=== PATIENT | female | born 1970 | race Caucasian/White ===

== ENCOUNTER 2020-12-09 12:31 | Emergency (ER) | payer OTHER ==
[2020-12-09] MEDS ORDERED: Sodium Chloride 0.9% 1000 ML 1,000 ML IV STA (12:58)
[2020-12-09] MEDS ORDERED: Zofran 4 MG/2 ML VIAL IV ONE (12:58)
[2020-12-09] MEDS ORDERED: MORPHINE SULFATE 4 MG INJ IV ONE (12:58)
[2020-12-09] MEDS ORDERED: Zofran 4 MG/2 ML VIAL ONE (13:01)
[2020-12-09] MEDS ORDERED: MORPHINE SULFATE 4 MG INJ ONE (13:01)
[2020-12-09] MEDS ORDERED: Sodium Chloride 0.9% 1000 ML 1,000 ML ONE (13:01)
[2020-12-09 13:13] LABS: Absolute Neutrophil Ct (ANC) 9.03 (1.4-6.9); BASOPHIL % 0.3 % (0.0-0.4); Basophil (Absolute #) 0.04 (0-0.4); Eosinophil % 6.6 % (0.00-5.0); Eosinophil (Absolute #) 0.92 (0-0.5); Hematocrit 38.3 % (35-47); Hemoglobin 12.2 gm/dl (12.0-16.0); Lymphocyte (Absolute #) 3.07 (1.0-4.6); Lymphocytes % 22.2 % (24.0-44.0); Mean Cell Volume 95.8 fl (78-100); Mean Corpuscular Hemoglobin 30.5 pg (26-32); Mean Corpuscular Hgb Concent. 31.9 g/dl (32-36); Mean Platelet Volume 9.7 fl (7.5-11.0); Monocyte (Absolute #) 0.79 (0.0-1.3); Monocytes % 5.7 % (0.0-12.0); Neutrophil % 65.2 % (36.0-66.0); Platelet Count 362 K/mm3 (150-450); Red Cell Distribution Width 15.4 % (11.5-14.0); White Blood Count 13.9 K/mm3 (4.0-10.5)
[2020-12-09 13:18] LABS: Appearance CLOUDY (CLEAR); Bacteria FEW /HPF (NEGATIVE); Bilirubin NEGATIVE (NEGATIVE); Blood MODERATE Ery/ul (0-5); Epithelial Cells RARE /HPF (FEW); Glucose NEGATIVE (NEGATIVE); Ketones NEGATIVE (NEGATIVE); Leukocyte Esterase LARGE (NEGATIVE); Mucus MANY /HPF (NEGATIVE); Nitrite POSITIVE (NEGATIVE); Protein,Urine Dip 30 (Negative); Specific Gravity 1.016 (1.005-1.025); Urobilinogen NEGATIVE mg/dL (0-1); WBC >100 /HPF (0-5)
--- NOTE | 2020-12-09 13:18 | ERPHSYRPT ---
- History of Present Illness Time Seen by Provider: 12/09/20 12:55 Historian: patient Exam Limitations: no limitations Patient Subjective Stated Complaint: here for lower abd pressure and frequency and pain with urination . has had UTI and been on 3 rounds of antiboitcs Triage Nursing Assessment: pt alert, walked in, resp easy, skin w/d/p. abd soft Physician History: Patient is a 50-year-old female presents to our ED with complaints of recurrent urinary tract infections and now experiencing urinary frequency and dysuria. Patient states that she has had 3 rounds of antibiotics for a urinary tract infection. She is diabetic. Patient also complains of lower abdominal pressure. She has been experiencing these symptoms intermittently since September 2020. 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 No trauma. No fever. No nausea or vomiting. No diarrhea. No rash. Symptoms are moderate in intensity. No specific worsening improving factors. Patient expresses concern that she may have a kidney stone. Patient voices no other complaints concerns at this time. Timing/Duration: today Activities at Onset: none Abdominal Pain Onset Location: other (Lower abdominal pain spans from left to right lower quadrant.) Pain Radiation: no radiation Severity of Pain-Max: moderate Severity of Pain-Current: mild Modifying Factors: Improves With: nothing Associated Symptoms: No diarrhea, No fever/chills, No nausea, No shortness of breath, No syncope, No vomiting Previous symptoms: same symptoms as today Allergies/Adverse Reactions: ciprofloxacin [From Cipro] Allergy (Severe, Verified 12/09/20 12:49) gets cellulitis Sulfa (Sulfonamide Antibiotics) Allergy (Severe, Verified 12/09/20 12:49) tachycardia Home Medications: Amitriptyline HCl 75 mg PO DAILY 04/26/20 [History] Ergocalciferol (Vitamin D2) [Vitamin D] 50,000 unit PO WEEKLY 04/26/20 [History] Insulin Glargine,Hum.rec.anlog [Basaglar Kwikpen U-100] 60 unit SQ BID 04/26/20 [History] Insulin Lispro [Humalog] 100 unit SQ AC 04/26/20 [History] Metformin HCl [Metformin ER Osmotic] 1,000 mg PO BID 04/26/20 [History] Pramipexole Di-HCl 0.5 mg [Mirapex 0.5 MG Tablet] 0.5 mg PO HS 04/26/20 [History] Atorvastatin Calcium [Lipitor] 10 mg PO DAILY 11/24/20 [History] Ferrous Sulfate, Dried [Iron] 65 mg PO DAILY 11/24/20 [History] Spironolactone 50 mg PO BID 11/24/20 [History] Immunizations Up to Date: Yes Travel Risk - International Travel Have you traveled outside of the country in past 3 weeks: No - Coronavirus Screening Are you exhibiting any of the following symptoms?: No Close contact with a COVID-19 positive Pt in past 14-21 Days: No - Vaccine Status Have you recieved a Covid-19 vaccination: Yes 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 - Vaccination Dates Date of 2cond Vaccination (if applicable): august 2020 - Review of Systems Constitutional: No Symptoms, No Fever, No Chills Eyes: No Symptoms Ears, Nose, & Throat: No Symptoms Respiratory: No Symptoms, No Cough, No Dyspnea Cardiac: No Symptoms, No Chest Pain, No Edema, No Syncope Abdominal/Gastrointestinal: No Symptoms, No Abdominal Pain, No Nausea, No Vomiting, No Diarrhea Genitourinary Symptoms: No Symptoms, No Dysuria Musculoskeletal: No Symptoms, No Back Pain, No Neck Pain Skin: No Symptoms, No Rash Neurological: No Symptoms, No Dizziness, No Focal Weakness, No Sensory Changes Psychological: No Symptoms Endocrine: No Symptoms Hematologic/Lymphatic: No Symptoms Immunological/Allergic: No Symptoms All Other Systems: Reviewed and Negative - Past Medical History Pertinent Past Medical History: Yes Neurological History: Migraines ENT History: No Pertinent History Cardiac History: Hypertension Respiratory History: No Pertinent History Endocrine Medical History: Diabetes Type II Musculoskeletal History: Osteoarthritis GI Medical History: No Pertinent History History: No Pertinent History Psycho-Social History: No Pertinent History Female Reproductive Disorders: No Pertinent History Other Medical History: low IGG2 - Past Surgical History Past Surgical History: Yes Neuro Surgical History: No Pertinent History Cardiac: No Pertinent History Respiratory: No Pertinent History Gastrointestinal: No Pertinent History Genitourinary: No Pertinent History Musculoskeletal: Joint Replacement Female Surgical History: Section, Tubal Ligation Other Surgical History: bilateral hip replacements, back, right foot ganglion cyst - Social History Smoking Status: Never smoker Exposure to second hand smoke: No Drug Use: none Patient Lives Alone: No - Female History Hx Last Menstrual Period: irregular Hx Now: No - Nursing Vital Signs Nursing Vital Signs: Initial Vital Signs Temperature 97.0 F 12/09/20 12:42 Pulse Rate 106 H 12/09/20 12:42 Respiratory Rate 18 12/09/20 12:42 Blood Pressure 175/91 12/09/20 12:42 O2 Sat by Pulse Oximetry 99 12/09/20 12:42 Pain Scale Pain Intensity 3 - Physical Exam General Appearance: no apparent distress, alert, obese Eye Exam: PERRL/EOMI, eyes nml inspection Ears, Nose, Throat Exam: normal ENT inspection, pharynx normal, moist mucous membranes Neck Exam: normal inspection, non-tender, supple, full range of motion Respiratory Exam: normal breath sounds, lungs clear, No respiratory distress Cardiovascular Exam: regular rate/rhythm, normal heart sounds Gastrointestinal/Abdomen Exam: soft, other (Tenderness to palpation across lower abdomen. Overlying soft tissue intact. Large pannus observed.), No tenderness, No mass Back Exam: normal inspection, normal range of motion, No CVA tenderness, No vertebral tenderness Extremity Exam: normal inspection, normal range of motion, pelvis stable Neurologic Exam: alert, oriented x 3, cooperative, sensation nml, No motor deficits Skin Exam: normal color, warm, dry SpO2 Interpretation: normal SpO2: 99 O2 Delivery: Room Air - Course Nursing assessment & vital signs reviewed: Yes Ordered Tests: Active Orders 24 hr Category Date Time Status IV Insertion STAT Care 12/09/20 12:58 Active ABDOMEN AND PELVIS W CONTRAST [CT] Stat Exams 12/09/20 12:58 Completed CBC W DIFF Stat Lab 12/09/20 13:10 Completed CMP Stat Lab 12/09/20 13:10 Completed CULTURE,URINE Stat Lab 12/09/20 12:50 Received LIPASE Stat Lab 12/09/20 13:10 Completed Manual Differential NC Stat Lab 12/09/20 13:10 Completed UA W/RFX UR CULTURE Stat Lab 12/09/20 12:50 Completed Medication Summary Discontinued Medications Generic Name Dose Route Start Last Admin Trade Name Freq PRN Reason Stop Dose Admin Sodium Chloride 1,000 mls @ 999 mls/hr 12/09/20 12:58 12/09/20 14:07 Sodium Chloride 0.9% 1000 Ml IV 12/09/20 13:58 Infused .Q1H1M STA Infusion Sodium Chloride Confirm 12/09/20 13:01 Sodium Chloride 0.9% 1000 Ml Administered 12/09/20 13:02 Dose 1,000 mls @ ud .ROUTE .STK-MED ONE Morphine Sulfate 4 mg 12/09/20 12:58 12/09/20 13:06 Morphine Sulfate 4 Mg Inj IV 12/09/20 12:59 4 mg STAT ONE Administration Morphine Sulfate Confirm 12/09/20 13:01 Morphine Sulfate 4 Mg Inj Administered 12/09/20 13:02 Dose 4 mg .ROUTE .STK-MED ONE Nitrofurantoin Macrocrystals 100 mg 12/09/20 15:02 12/09/20 15:09 Macrobid 100mg Capsule PO 12/09/20 15:03 Not Given STAT ONE Nitrofurantoin Macrocrystals Confirm 12/09/20 15:02 Macrobid 100mg Capsule Administered 12/09/20 15:03 Dose 100 mg .ROUTE .STK-MED ONE Ondansetron HCl 4 mg 12/09/20 12:58 12/09/20 13:06 Zofran 4 Mg/2 Ml Vial IV 12/09/20 12:59 4 mg STAT ONE Administration Ondansetron HCl Confirm 12/09/20 13:01 Zofran 4 Mg/2 Ml Vial Administered 12/09/20 13:02 Dose 4 mg .ROUTE .STK-MED ONE Lab/Rad Data: Laboratory Result Diagrams 12/09/20 13:10 12/09/20 13:10 Laboratory Results 12/09/20 12/09/20 12/09/20 Range/Units 13:10 13:10 12:50 WBC 13.9 H (4.0-10.5) K/mm3 RBC 4.00 L (4.1-5.4) M/mm3 Hgb 12.2 (12.0-16.0) gm/dl Hct 38.3 (35-47) % MCV 95.8 (78-100) fl MCH 30.5 (26-32) pg MCHC 31.9 L (32-36) g/dl RDW 15.4 H (11.5-14.0) % Plt Count 362 (150-450) K/mm3 MPV 9.7 (7.5-11.0) fl Gran % 65.2 (36.0-66.0) % Eos # (Auto) 0.92 H (0-0.5) Absolute Lymphs (auto) 3.07 (1.0-4.6) Absolute Monos (auto) 0.79 (0.0-1.3) Lymphocytes % 22.2 L (24.0-44.0) % Monocytes % 5.7 (0.0-12.0) % Eosinophils % 6.6 H (0.00-5.0) % Basophils % 0.3 (0.0-0.4) % Absolute Granulocytes 9.03 H (1.4-6.9) Segmented Neutrophils 70 H (36.0-66.0) % Lymphocytes (Manual) 22 L (24-44) % Monocytes (Manual) 2 (0.0-12.0) % Eosinophils (Manual) 6 H (0.00-3.0) % Basophils # 0.04 (0-0.4) Toxic Granulation 2+ Platelet Estimate NORMAL (NORMAL) RBC Morphology ABNORMAL Anisocytosis 1+ Sodium 134 L (137-145) mmol/L Potassium 4.1 (3.5-5.1) mmol/L Chloride 97 L (98-107) mmol/L Carbon Dioxide 24 (22-30) mmol/L Anion Gap 16.8 H (5-15) MEQ/L BUN 15 (7-17) mg/dL Creatinine 0.54 (0.52-1.04) mg/dL Estimated GFR > 60.0 ML/MIN Glucose 201 H (74-106) mg/dL Calcium 9.4 (8.4-10.2) mg/dL Total Bilirubin 0.50 (0.2-1.3) mg/dL AST 26 (14-36) U/L ALT 24 (0-35) U/L Alkaline Phosphatase 91 (38-126) U/L Serum Total Protein 7.3 (6.3-8.2) g/dL Albumin 4.3 (3.5-5.0) g/dL Lipase 60 (23-300) U/L Urine Color YELLOW (YELLOW) Urine Appearance CLOUDY (CLEAR) Urine pH 5.0 (5-6) Ur Specific Flushing 1.016 (1.005-1.025) Urine Protein 30 (Negative) Urine Ketones NEGATIVE (NEGATIVE) Urine Blood MODERATE (0-5) Antonio/ul Urine Nitrite POSITIVE (NEGATIVE) Urine Bilirubin NEGATIVE (NEGATIVE) Urine Urobilinogen NEGATIVE (0-1) mg/dL Ur Leukocyte Esterase LARGE (NEGATIVE) Urine WBC (Auto) >100 (0-5) /HPF Urine RBC (Auto) 11-15 (0-2) /HPF U Epithel Cells (Auto) RARE (FEW) /HPF Urine Bacteria (Auto) FEW (NEGATIVE) /HPF Urine Mucus (Auto) MANY (NEGATIVE) /HPF Urine Culture Reflexed YES (NO) Urine Glucose NEGATIVE (NEGATIVE) mg/dL - Progress Progress: improved Progress Note: Patient reassessed. Pain improved. Work-up reveals a urinary tract infection. Patient's last cultures revealed patient is sensitive to linezolid. Case discussed with Dr. Luz who will call in linezolid to patient's [facility] on [address]. 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 No indication for further work-up at this time will discharge home. Patient agrees to follow-up with her primary care provider within 48 hours for reevaluation 12/09/20 16:08 Discussed with .: Arnaud Will see patient in: office Counseled pt/family regarding: lab results, diagnosis, need for follow-up, rad results - Departure Departure Disposition: Home Clinical Impression: UTI (urinary tract infection), Splenomegaly, Fatty liver, Renal cyst, Ovarian cyst Condition: Stable Critical Care Time: No Referrals: ADELINA VASQUES NP [Primary Care Provider] - Additional Instructions: Discharge/Care Plan DELANO ANN was seen on 12/09/20 in the Emergency Room. The patient was counseled regarding Diagnosis,Lab results, Imaging studies, need for follow up and when to return to the Emergency Room. Prescriptions given: Discharge Note I have spoken with the patient and/or caregivers. I have explained the patient's condition, diagnosis and treatment plan based on the information available to me at this time. I have answered the patient's and/or caregiver's questions and addressed any concerns. The patient and/or caregivers have as good understanding of the patient's diagnosis, condition and treatment plan as can be expected at this point. The vital signs have been stable. The patient's condition is stable and appropriate for discharge from the emergency department. The patient will pursue further outpatient evaluation with the primary care physician or other designated or consulting physician as outlined in the discharge instructions. The patient and/or caregivers are agreeable to this plan of care and follow-up instructions have been explained in detail. The patient and/or caregivers have received these instruction. The patient/and or caregivers are aware that any significant change in condition or worsening of symptoms should prompt an immediate return to this or the closest emergency department or call 911.
[2020-12-09 13:22] LABS: ALBUMIN 4.3 g/dL (3.5-5.0); ALKALINE PHOSPHATASE 91 U/L (38-126); ANION GAP 16.8 MEQ/L (5-15); BLOOD UREA NITROGEN 15 mg/dL (7-17); CHLORIDE 97 mmol/L (98-107); Calcium 9.4 mg/dL (8.4-10.2); Carbon Dioxide 24 mmol/L (22-30); Creatinine 1 0.54 mg/dL (0.52-1.04); EST GLOMERULAR FILTRATION RATE > 60.0 ML/MIN; Glucose 201 mg/dL (74-106); LIPASE 60 U/L (23-300); Potassium 4.1 mmol/L (3.5-5.1); SGOT/AST 26 U/L (14-36); SGPT/ALT 24 U/L (0-35); SODIUM 134 mmol/L (137-145); Total Protein 7.3 g/dL (6.3-8.2)
--- NOTE | 2020-12-09 14:11 | XRAY ---
Indication: Pelvic pain. Dysuria. UTI. Multiple contiguous axial images obtained through the abdomen and pelvis using 80 cc Isovue 370 contrast. Comparison: None Lung bases are clear. Heart not enlarged. Bilateral total hip arthroplasty produces extreme beam artifact limiting these levels. Noncontrasted stomach and bowel loops appear nonobstructed. No free fluid/air. Mild diffuse fatty hepatomegaly measuring 22 cm, 13.5 cm splenomegaly, 2 cm left mid renal cyst, and 2.3 cm left ovary cyst. Remaining liver, gallbladder, pancreas, spleen, adrenal glands, kidneys, ureters, bladder, uterus, and aorta are unremarkable. No pathologic retroperitoneal lymphadenopathy. Osseous structures intact with minimal degenerative changes throughout the spine. Impression: 1. Beam artifact from bilateral total hip arthroplasty. 2. Fatty hepatomegaly, splenomegaly, 2 cm left renal cyst, and 2.3 cm left ovary cyst. 3. Remaining CT abdomen/pelvis with contrast exam is negative.
[2020-12-09 14:36] LABS: ANISOCYTOSIS 1+; Eosinophil 6 % (0.00-3.0); Lymphocytes 22 % (24-44); Monocyte 2 % (0.0-12.0); Neutrophils 70 % (36.0-66.0); Platelet Estimate NORMAL (NORMAL); Total Cells Counted 100; Toxic Granulation 2+
[2020-12-09] MEDS ORDERED: Macrobid 100MG Capsule ONE (15:02)
[2020-12-09] MEDS: Macrobid 100MG Capsule PO ONE ×2 (15:03→15:09)
[2020-12-09 16:11] VITALS: BP 141/78; PULSE 80; O2SAT 96
== END 2020-12-09 16:16 | disposition home or self-care (01) ==
LOC: ED 12:31
DX: N39.0 Urinary tract infection, site not specified (principal); D73.9 Disease of spleen, unspecified; K76.0 Fatty (change of) liver, not elsewhere classified; N28.1 Cyst of kidney, acquired; N83.209 Unspecified ovarian cyst, unspecified side
CPT/HCPCS: 36000; 36415; 74177; 80053; 81001; 83690; 85025; 87077; 87086; 87186; 96374; 96375; 99284; J2270; J2405; A9270-GY

== ENCOUNTER 2022-09-08 15:25 | Emergency (ER) | payer OTHER ==
[2022-09-08] MEDS ORDERED: Sodium Chloride 0.9% 1000 ML 1,000 ML IV STA ×2 (16:31→18:33)
[2022-09-08] MEDS ORDERED: Sodium Chloride 0.9% 1000 ML 1,000 ML ONE ×2 (16:33→18:42)
[2022-09-08 16:36] LABS: Absolute Neutrophil Ct (ANC) 8.63 x10^3/uL (1.4-6.9); BASOPHIL % 0.2 % (0.0-0.4); Basophil (Absolute #) 0.02 x10^3/uL (0-0.4); Eosinophil % 2.2 % (0.00-5.0); Eosinophil (Absolute #) 0.22 x10^3/uL (0-0.5); Hemoglobin 11.6 g/dL (12.0-16.0); IMMATURE GRAN # 0.09 x10^3u/L (0.00-0.03); IMMATURE GRAN % 0.9 % (0.00-0.4); Lymphocyte (Absolute #) 0.76 x10^3/uL (1.0-4.6); Lymphocytes % 7.5 % (24.0-44.0); Mean Cell Volume 94.6 fL (78-100); Mean Corpuscular Hemoglobin 29.7 pg (26-32); Mean Corpuscular Hgb Concent. 31.4 g/dL (32-36); Mean Platelet Volume 9.6 fL (7.5-11.0); Monocyte (Absolute #) 0.37 x10^3/uL (0.0-1.3); Monocytes % 3.7 % (0.0-12.0); Neutrophil % 85.5 % (36.0-66.0); Platelet Count 308 x10^3/uL (150-450); Red Blood Count 3.91 x10^6/uL (4.1-5.4); Red Cell Distribution Width 15.8 % (11.5-14.0); White Blood Count 10.1 x10^3/uL (4.0-10.5)
[2022-09-08 16:42] LABS: Appearance Clear (Clear); Bacteria None Seen /HPF (None Seen); Bilirubin Negative (Negative); Blood Trace (Negative); Epithelial Cells None Seen /HPF (None Seen); Glucose, Urine Negative (Negative); Hyaline Casts NONE SEEN /LPF (0-2); Ketones 15 (Negative); Leukocyte Esterase Moderate (Negative); Nitrite Negative (Negative); Ph 5.5 (4.6-8.0); Protein,Urine Dip Trace (Negative); RBC 0-2 /HPF (0-5); Specific Gravity 1.025 (1.005-1.030); Urobilinogen 0.2 mg/dL (0.2); WBC 21-50 /HPF (0-5)
[2022-09-08 16:44] LABS: ADD URINE CULTURE? YES (NO)
[2022-09-08 17:13] LABS: INFLUENZA A NEGATIVE (NEGATIVE); INFLUENZA B NEGATIVE (NEGATIVE); RESPIRATORY SYNCTIAL VIRUS NEGATIVE (NEGATIVE); SARS-CoV-2 Xpert Express NEGATIVE (NEGATIVE)
--- NOTE | 2022-09-08 17:27 | ERPHSYRPT ---
- History of Present Illness Historian: patient Exam Limitations: no limitations Patient Subjective Stated Complaint: Diarrhea Triage Nursing Assessment: Patient ambulated back to ED and transferred self to bed. Patient A+O X 3. Patient's skin flushed, warm and dry. Patient complains of diarhea that started last night. Patient also complains of fever. Patient has had 20-30 episodes of diarrhea since last night. Patient complains of body aches and abdominal cramping /. Patient wears home O2 at 2 liters per N/C. Physician History: 52 yo WF w DM/HTN/pulmonary hypertension/2L O2 dep presents w diarrhea today. Pt has minimal abdominal pain and has nausea wo vomiting. She has a fever but denies cough/coryza/ST/dysuria/hematuria/chest pain/increased dyspnea. 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 Timing/Duration: today Activities at Onset: rest Quality: cramping (Mild) Abdominal Pain Onset Location: generalized abdomen Pain Radiation: no radiation Severity of Pain-Max: mild Severity of Pain-Current: mild Modifying Factors: Improves With: nothing Associated Symptoms: diarrhea, fever/chills Previous symptoms: no prior history Allergies/Adverse Reactions: ciprofloxacin [From Cipro] Allergy (Severe, Verified 09/08/22 16:00) gets cellulitis Sulfa (Sulfonamide Antibiotics) Allergy (Severe, Verified 09/08/22 16:00) tachycardia Home Medications: Amitriptyline HCl 75 mg PO DAILY 04/26/20 [History] Ergocalciferol (Vitamin D2) [Vitamin D] 50,000 unit PO WEEKLY 04/26/20 [History] Insulin Glargine,Hum.rec.anlog [Basaglar Kwikpen U-100] 60 unit SQ BID 04/26/20 [History] Insulin Lispro [Humalog] 100 unit SQ AC 04/26/20 [History] Metformin HCl [Metformin ER Osmotic] 1,000 mg PO BID 04/26/20 [History] Pramipexole Di-HCl 0.5 mg [Mirapex 0.5 MG Tablet] 0.5 mg PO HS 04/26/20 [History] Atorvastatin Calcium [Lipitor] 10 mg PO DAILY 11/24/20 [History] Ferrous Sulfate, Dried [Iron] 65 mg PO DAILY 11/24/20 [History] Spironolactone 50 mg PO BID 11/24/20 [History] Hx Influenza Vaccination/Date Given: Yes Hx Pneumococcal Vaccination/Date Given: No Immunizations Up to Date: Yes Travel Risk - International Travel Have you traveled outside of the country in past 3 weeks: No - Coronavirus Screening Are you exhibiting any of the following symptoms?: No Close contact with a COVID-19 positive Pt in past 14-21 Days: No - Vaccine Status Have you recieved a Covid-19 vaccination: Yes 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 - Vaccination Dates Date of 2cond Vaccination (if applicable): august 2020 - Review of Systems Constitutional: No Symptoms, Fever, Chills, Fatigue, Lethargy, Malaise Eyes: No Symptoms Ears, Nose, & Throat: No Symptoms Respiratory: No Symptoms Cardiac: No Symptoms Abdominal/Gastrointestinal: No Symptoms, Nausea, Diarrhea Genitourinary Symptoms: No Symptoms Musculoskeletal: No Symptoms Skin: No Symptoms Neurological: No Symptoms Psychological: No Symptoms Endocrine: No Symptoms Hematologic/Lymphatic: No Symptoms Immunological/Allergic: No Symptoms - Past Medical History Pertinent Past Medical History: Yes Neurological History: Migraines ENT History: No Pertinent History Cardiac History: Hypertension Respiratory History: No Pertinent History Endocrine Medical History: Diabetes Type II Musculoskeletal History: Osteoarthritis GI Medical History: No Pertinent History History: No Pertinent History Psycho-Social History: No Pertinent History Female Reproductive Disorders: No Pertinent History Other Medical History: low IGG2. pulmonary hypertension - Past Surgical History Past Surgical History: Yes Neuro Surgical History: No Pertinent History Cardiac: No Pertinent History Respiratory: No Pertinent History Gastrointestinal: No Pertinent History Genitourinary: No Pertinent History Musculoskeletal: Joint Replacement Female Surgical History: Section, Tubal Ligation Other Surgical History: bilateral hip replacements, back, right foot ganglion cyst - Social History Smoking Status: Never smoker Exposure to second hand smoke: No Drug Use: none Patient Lives Alone: No - Nursing Vital Signs Nursing Vital Signs: Initial Vital Signs Temperature 100.3 F 09/08/22 16:03 Pulse Rate 108 H 09/08/22 16:03 Respiratory Rate 20 09/08/22 16:03 Blood Pressure 183/85 09/08/22 16:03 O2 Sat by Pulse Oximetry 97 09/08/22 16:03 Pain Scale Pain Intensity 3 Febrile/Tachycardic/hypertensive - Physical Exam General Appearance: mild distress Eye Exam: PERRL/EOMI, eyes nml inspection Ears, Nose, Throat Exam: normal ENT inspection, TMs normal, pharynx normal, moist mucous membranes Neck Exam: normal inspection, non-tender, supple, full range of motion, No meningismus, No mass, No Brudzinski, No Kernig's Respiratory Exam: normal breath sounds, lungs clear, airway intact, No respiratory distress Cardiovascular Exam: murmur (2/6 ANUJ), tachycardia Gastrointestinal/Abdomen Exam: soft, normal bowel sounds, No tenderness Back Exam: normal inspection, normal range of motion, No CVA tenderness, No vertebral tenderness Extremity Exam: normal inspection, normal range of motion, pedal edema (Chronic 2+) Neurologic Exam: alert, oriented x 3, cooperative, cardiac monitor technician II-XII nml as tested, normal mood/affect, nml cerebellar function, nml station & gait, sensation nml Skin Exam: normal color, warm, dry Lymphatic Exam: No adenopathy SpO2 Interpretation: normal SpO2: 97 O2 Delivery: Room Air - Course Nursing assessment & vital signs reviewed: Yes - CT Exams Abdomen/Pelvis CT Interpretation: Tele-radiologist Report (LAM/umbilical hernia/Nothing acure) Ordered Tests: Active Orders 24 hr Category Date Time Status ABDOMEN AND PELVIS W/0 CONTRAS [CT] Stat Exams 09/08/22 18:34 Completed AMYLASE Stat Lab 09/08/22 16:20 Completed CBC W DIFF Stat Lab 09/08/22 16:20 Completed CMP Stat Lab 09/08/22 16:20 Completed CULTURE,URINE Stat Lab 09/08/22 16:29 Received LIPASE Stat Lab 09/08/22 16:20 Completed Lactic Acid Stat Lab 09/08/22 16:27 Completed Lactic Acid Stat Lab 09/08/22 18:29 Completed UA W/RFX UR CULTURE Stat Lab 09/08/22 16:29 Completed Medication Summary Discontinued Medications Generic Name Dose Route Start Last Admin Trade Name Freq PRN Reason Stop Dose Admin Acetaminophen 1,000 mg 09/08/22 21:30 09/08/22 21:43 Acetaminophen 500 Mg Tablet PO 09/08/22 21:31 1,000 mg STAT ONE Administration Acetaminophen Confirm 09/08/22 21:42 Acetaminophen 500 Mg Tablet Administered 09/08/22 21:43 Dose 1,000 mg .ROUTE .STK-MED ONE Sodium Chloride 1,000 mls @ 999 mls/hr 09/08/22 16:31 09/08/22 17:47 Sodium Chloride 0.9% 1000 Ml IV 09/08/22 17:31 Infused .Q1H1M STA Infusion Sodium Chloride Confirm 09/08/22 16:33 Sodium Chloride 0.9% 1000 Ml Administered 09/08/22 16:34 Dose 1,000 mls @ ud .ROUTE .STK-MED ONE Sodium Chloride 1,000 mls @ 999 mls/hr 09/08/22 18:33 09/08/22 20:27 Sodium Chloride 0.9% 1000 Ml IV 09/08/22 19:33 Infused .Q1H1M STA Infusion Sodium Chloride Confirm 09/08/22 18:42 Sodium Chloride 0.9% 1000 Ml Administered 09/08/22 18:43 Dose 1,000 mls @ ud .ROUTE .STK-MED ONE Lab/Rad Data: Laboratory Result Diagrams 09/08/22 16:20 09/08/22 16:20 Laboratory Results 09/08/22 09/08/22 09/08/22 Range/Units 21:36 18:29 16:30 WBC (4.0-10.5) x10^3/uL RBC (4.1-5.4) x10^6/uL Hgb (12.0-16.0) g/dL Hct (35-47) % MCV (78-100) fL MCH (26-32) pg MCHC (32-36) g/dL RDW (11.5-14.0) % Plt Count (150-450) x10^3/uL MPV (7.5-11.0) fL Gran % (36.0-66.0) % Immature Gran % (Auto) (0.00-0.4) % Nucleat RBC Rel Count (0.00-0.1) % Eos # (Auto) (0-0.5) x10^3/uL Immature Gran # (Auto) (0.00-0.03) x10^3u/L Absolute Lymphs (auto) (1.0-4.6) x10^3/uL Absolute Monos (auto) (0.0-1.3) x10^3/uL Absolute Nucleated RBC (0.00-0.01) x10^3u/L Lymphocytes % (24.0-44.0) % Monocytes % (0.0-12.0) % Eosinophils % (0.00-5.0) % Basophils % (0.0-0.4) % Absolute Granulocytes (1.4-6.9) x10^3/uL Basophils # (0-0.4) x10^3/uL Sodium (137-145) mmol/L Potassium (3.5-5.1) mmol/L Chloride (98-107) mmol/L Carbon Dioxide (22-30) mmol/L Anion Gap (5-15) MEQ/L BUN (7-17) mg/dL Creatinine (0.52-1.04) mg/dL Estimated GFR ML/MIN Glucose (74-106) mg/dL Lactic Acid 1.3 (0.4-2.0) Calcium (8.4-10.2) mg/dL Total Bilirubin (0.2-1.3) mg/dL AST (14-36) U/L ALT (0-35) U/L Alkaline Phosphatase (38-126) U/L Serum Total Protein (6.3-8.2) g/dL Albumin (3.5-5.0) g/dL Amylase (30-110) U/L Lipase (23-300) U/L Urine Color (Yellow) Urine Appearance (Clear) Urine pH (4.6-8.0) Ur Specific [place] (1.005-1.030) Urine Protein (Negative) Urine Glucose (UA) (Negative) mg/dL Urine Ketones (Negative) Urine Blood (Negative) Urine Nitrite (Negative) Urine Bilirubin (Negative) Urine Urobilinogen (0.2) mg/dL Ur Leukocyte Esterase (Negative) U Hyaline Cast (Auto) (0-2) /LPF Urine Microscopic RBC (0-5) /HPF Urine Microscopic WBC (0-5) /HPF Ur Epithelial Cells (None Seen) /HPF Urine Bacteria (None Seen) /HPF Urine Culture Reflexed (NO) C. difficile Screen POSITIVE (NEGATIVE) C.difficile 027-NAP1-B1 PRESUMPTIVE NEGATIVE (NEGATIVE) Influenza Type A Ag NEGATIVE (NEGATIVE) Influenza Type B Ag NEGATIVE (NEGATIVE) RSV (PCR) NEGATIVE (NEGATIVE) SARS-CoV-2 (PCR) NEGATIVE (NEGATIVE) 09/08/22 09/08/22 09/08/22 Range/Units 16:29 16:27 16:20 WBC (4.0-10.5) x10^3/uL RBC (4.1-5.4) x10^6/uL Hgb (12.0-16.0) g/dL Hct (35-47) % MCV (78-100) fL MCH (26-32) pg MCHC (32-36) g/dL RDW (11.5-14.0) % Plt Count (150-450) x10^3/uL MPV (7.5-11.0) fL Gran % (36.0-66.0) % Immature Gran % (Auto) (0.00-0.4) % Nucleat RBC Rel Count (0.00-0.1) % Eos # (Auto) (0-0.5) x10^3/uL Immature Gran # (Auto) (0.00-0.03) x10^3u/L Absolute Lymphs (auto) (1.0-4.6) x10^3/uL Absolute Monos (auto) (0.0-1.3) x10^3/uL Absolute Nucleated RBC (0.00-0.01) x10^3u/L Lymphocytes % (24.0-44.0) % Monocytes % (0.0-12.0) % Eosinophils % (0.00-5.0) % Basophils % (0.0-0.4) % Absolute Granulocytes (1.4-6.9) x10^3/uL Basophils # (0-0.4) x10^3/uL Sodium 133 L (137-145) mmol/L Potassium 4.5 (3.5-5.1) mmol/L Chloride 97 L (98-107) mmol/L Carbon Dioxide 22 (22-30) mmol/L Anion Gap 19.3 H (5-15) MEQ/L BUN 13 (7-17) mg/dL Creatinine 0.52 (0.52-1.04) mg/dL Estimated GFR > 60.0 ML/MIN Glucose 204 H (74-106) mg/dL Lactic Acid 2.2 H (0.4-2.0) Calcium 8.9 (8.4-10.2) mg/dL Total Bilirubin 0.90 (0.2-1.3) mg/dL AST 50 H (14-36) U/L ALT 45 H (0-35) U/L Alkaline Phosphatase 87 (38-126) U/L Serum Total Protein 7.6 (6.3-8.2) g/dL Albumin 4.3 (3.5-5.0) g/dL Amylase 32 (30-110) U/L Lipase 39 (23-300) U/L Urine Color Yellow (Yellow) Urine Appearance Clear (Clear) Urine pH 5.5 (4.6-8.0) Ur Specific [place] 1.025 (1.005-1.030) Urine Protein Trace A (Negative) Urine Glucose (UA) Negative (Negative) mg/dL Urine Ketones 15 A (Negative) Urine Blood Trace (Negative) Urine Nitrite Negative (Negative) Urine Bilirubin Negative (Negative) Urine Urobilinogen 0.2 (0.2) mg/dL Ur Leukocyte Esterase Moderate A (Negative) U Hyaline Cast (Auto) NONE SEEN (0-2) /LPF Urine Microscopic RBC 0-2 (0-5) /HPF Urine Microscopic WBC 21-50 A (0-5) /HPF Ur Epithelial Cells None Seen (None Seen) /HPF Urine Bacteria None Seen (None Seen) /HPF Urine Culture Reflexed YES (NO) C. difficile Screen (NEGATIVE) C.difficile 027-NAP1-B1 (NEGATIVE) Influenza Type A Ag (NEGATIVE) Influenza Type B Ag (NEGATIVE) RSV (PCR) (NEGATIVE) SARS-CoV-2 (PCR) (NEGATIVE) 09/08/22 Range/Units 16:20 WBC 10.1 (4.0-10.5) x10^3/uL RBC 3.91 L (4.1-5.4) x10^6/uL Hgb 11.6 L (12.0-16.0) g/dL Hct 37.0 (35-47) % MCV 94.6 (78-100) fL MCH 29.7 (26-32) pg MCHC 31.4 L (32-36) g/dL RDW 15.8 H (11.5-14.0) % Plt Count 308 (150-450) x10^3/uL MPV 9.6 (7.5-11.0) fL Gran % 85.5 H (36.0-66.0) % Immature Gran % (Auto) 0.9 H (0.00-0.4) % Nucleat RBC Rel Count 0.0 (0.00-0.1) % Eos # (Auto) 0.22 (0-0.5) x10^3/uL Immature Gran # (Auto) 0.09 H (0.00-0.03) x10^3u/L Absolute Lymphs (auto) 0.76 L (1.0-4.6) x10^3/uL Absolute Monos (auto) 0.37 (0.0-1.3) x10^3/uL Absolute Nucleated RBC 0.00 (0.00-0.01) x10^3u/L Lymphocytes % 7.5 L (24.0-44.0) % Monocytes % 3.7 (0.0-12.0) % Eosinophils % 2.2 (0.00-5.0) % Basophils % 0.2 (0.0-0.4) % Absolute Granulocytes 8.63 H (1.4-6.9) x10^3/uL Basophils # 0.02 (0-0.4) x10^3/uL Sodium (137-145) mmol/L Potassium (3.5-5.1) mmol/L Chloride (98-107) mmol/L Carbon Dioxide (22-30) mmol/L Anion Gap (5-15) MEQ/L BUN (7-17) mg/dL Creatinine (0.52-1.04) mg/dL Estimated GFR ML/MIN Glucose (74-106) mg/dL Lactic Acid (0.4-2.0) Calcium (8.4-10.2) mg/dL Total Bilirubin (0.2-1.3) mg/dL AST (14-36) U/L ALT (0-35) U/L Alkaline Phosphatase (38-126) U/L Serum Total Protein (6.3-8.2) g/dL Albumin (3.5-5.0) g/dL Amylase (30-110) U/L Lipase (23-300) U/L Urine Color (Yellow) Urine Appearance (Clear) Urine pH (4.6-8.0) Ur Specific [place] (1.005-1.030) Urine Protein (Negative) Urine Glucose (UA) (Negative) mg/dL Urine Ketones (Negative) Urine Blood (Negative) Urine Nitrite (Negative) Urine Bilirubin (Negative) Urine Urobilinogen (0.2) mg/dL Ur Leukocyte Esterase (Negative) U Hyaline Cast (Auto) (0-2) /LPF Urine Microscopic RBC (0-5) /HPF Urine Microscopic WBC (0-5) /HPF Ur Epithelial Cells (None Seen) /HPF Urine Bacteria (None Seen) /HPF Urine Culture Reflexed (NO) C. difficile Screen (NEGATIVE) C.difficile 027-NAP1-B1 (NEGATIVE) Influenza Type A Ag (NEGATIVE) Influenza Type B Ag (NEGATIVE) RSV (PCR) (NEGATIVE) SARS-CoV-2 (PCR) (NEGATIVE) - Progress Progress Note: 09/08/22 23:14 Nursing note and vital signs reviewed No food or housing insecurities noted Additional history per All lab results reviewed and shared w pt CT result reviewed and shared w pt 09/08/22 23:15 1L NS bolus 1gm po Tylenol Pt refused to start antibiotics for UTI at this time and wants to wait on culture and urology follow up next week Pt refused admit for continued hydration and further observation Pt elected to leave before C. diff result finalized C. diff toxin later + Flagyl 500mg tid x 10 days electronically sent to pharmacy Voice mail left on pt's phone Spoke w pt's and related + C. Diff toxin 09/08/22 23:23 Counseled pt/family regarding: lab results, diagnosis, need for follow-up, rad results Medical Desision Making - Independent Historian Additional History obtained from: Spouse - Risk of complications The pt has a mod risk of morbidity or mortality based on: Need for prescription drug management - Departure Departure Disposition: Home Clinical Impression: Diarrhea, UTI (urinary tract infection), C. difficile diarrhea Condition: Stable Critical Care Time: No Referrals: ADELINA VASQUES NP [Primary Care Provider] - Follow up/PCP as directed Instructions: Diarrhea and Travelers' Diarrhea, Adult (DC), Urinary Tract Infection, Adult (DC) Additional Instructions: Fluids Bentyl as needed for pain Follow up with your family MD and urologist next week Return to ER for increasing abdominal pain or temperature greater than 100.5 Prescriptions: Dicyclomine HCl 20 mg [Bentyl 20 mg] 20 mg PO Q6H PRN PRN #15 tablet PRN Reason: Pain Metronidazole 500 mg [Flagyl 500 MG] 500 mg PO TID #30 tablet
[2022-09-08 18:30] LABS: ALBUMIN 4.3 g/dL (3.5-5.0); ALKALINE PHOSPHATASE 87 U/L (38-126); AMYLASE 32 U/L (30-110); ANION GAP 19.3 MEQ/L (5-15); BLOOD UREA NITROGEN 13 mg/dL (7-17); CHLORIDE 97 mmol/L (98-107); Calcium 8.9 mg/dL (8.4-10.2); Carbon Dioxide 22 mmol/L (22-30); Creatinine 1 0.52 mg/dL (0.52-1.04); EST GLOMERULAR FILTRATION RATE > 60.0 ML/MIN; Glucose 204 mg/dL (74-106); LIPASE 39 U/L (23-300); Potassium 4.5 mmol/L (3.5-5.1); SGOT/AST 50 U/L (14-36); SGPT/ALT 45 U/L (0-35); SODIUM 133 mmol/L (137-145); Total Protein 7.6 g/dL (6.3-8.2)
[2022-09-08 20:35] VITALS: BP 138/77; PULSE 88
--- NOTE | 2022-09-08 21:03 | XRAY ---
CLINICAL HISTORY:Abdominal pain and diarrhea; COMPARISON:12/09/2020; TECHNIQUES:Multiple axial slices with coronal and sagittal reformatting from CT scan abdomen and pelvis without contrast have been submitted for interpretation; FINDINGS: Visualized lung bases are clear. Cardiothoracic ratio is within normal limits. Liver is significantly enlarged in size measuring up to 20.[address] attenuation value suggestive of fatty infiltration. No definite focal lesion or intrahepatic biliary dilatation is noted within the constraints of non-contrast study. Gallbladder, pancreas, spleen and adrenals appear unremarkable. Both kidneys are normal in size and shape with right kidney being malpositioned. No definite cyst, calculus, mass or hydronephrosis is noted. Limited evaluation of the pelvic viscera due to bilateral hip replacements giving streak artifacts. Proximal and mid ureters appear unremarkable. Distal ureters and urinary bladder cannot be optimally commented upon due to the limitations described above. Uterus and bilateral adnexa appear unremarkable. Visualized gastroesophageal junction, stomach, duodenum and small bowel loops appear unremarkable. Large bowel loops also appear unremarkable. The ileocecal junction and appendix appear intact. No definite ascites or abdominal lymphadenopathy is noted. Degenerative changes are noted in the visualized thoracic lumbar spine. Fat-containing umbilical hernia is seen. Rest of the visualized regional osseous structures and surrounding soft tissues are intact. IMPRESSION: Hepatomegaly with hepatic steatosis. Fat-containing umbilical hernia seen. Rest of the details as above. Electronically Signed by: Iban Hogue MD. (09/08/2022 19:56:02 ANIMAL PHYSIOLOGIST)
[2022-09-08] MEDS ORDERED: TYLENOL EXTRA STRENGTH 500 MG PO ONE (21:30)
[2022-09-08 21:35] VITALS: O2SAT 97
[2022-09-08] MEDS ORDERED: TYLENOL EXTRA STRENGTH 500 MG ONE (21:42)
[2022-09-08 22:21] LABS: 027 TOX PROD PRESUMPTIVE NEGATIVE (NEGATIVE)
[2022-09-08 22:26] LABS: TOXIGENIC C. DIFF ORG POSITIVE (NEGATIVE)
== END 2022-09-08 21:54 | disposition home or self-care (01) ==
LOC: ED 15:25
DX: A04.72 Enterocolitis due to Clostridium difficile, not specified as recurrent (principal); N39.0 Urinary tract infection, site not specified; R11.0 Nausea; R50.9 Fever, unspecified; E11.9 Type 2 diabetes mellitus without complications; I10 Essential (primary) hypertension; Z79.4 Long term (current) use of insulin; Z79.84 Long term (current) use of oral hypoglycemic drugs; Z79.899 Other long term (current) drug therapy; Z99.81 Dependence on supplemental oxygen
CPT/HCPCS: 0241U; 36000; 36415; 74176; 80053; 81001; 82150; 83605; 83690; 85025; 87086; 87493; 96360; 96361; 99284; A9270-GY

== ENCOUNTER 2023-05-18 11:05 | Emergency (ER) | payer BC ==
[2023-05-18 11:26] VITALS: PULSE 93; TEMP 98.3; O2SAT 97
--- NOTE | 2023-05-18 11:49 | ERPHSYRPT ---
- History of Present Illness Historian: patient, other () Exam Limitations: no limitations Patient Subjective Stated Complaint: Pt states that she has had diarrhea since Sunday and thinks that she has c-diff, pt feels weak and nauseous Triage Nursing Assessment: Pt brought to the ER by her , hypertensive, denies pain, diarrhea, hx of c-diff last year, nausea, denies vomiting, has had bleeding but thinks it is from her hemrrhoid, has an immune system disorder, denies pain with palpatation to her abdomen, pulses normal, skin n/w/d, doesn't appear to be in any distress Physician History: Patient is a 52-year-old female with chief complaint of diarrhea x 5 days. Patient has a history of C. difficile in the past she denies any abdominal pain at this time. Patient has nausea without vomiting. Melena and hematochezia are denied. She has been sneezing but denies any cough or coryza. Past medical history includes diabetes mellitus type 2, bilateral hip replacements, hypertension, and pulmonary hypertension. Timing/Duration: other ( 5 days) Quality: other ( no abdominal pain reported) Abdominal Pain Onset Location: other ( no abdominal pain with) Pain Radiation: no radiation Severity of Pain-Max: none Severity of Pain-Current: none Modifying Factors: Improves With: nothing Associated Symptoms: denies symptoms Previous symptoms: other ( history of C. difficile in the past) Allergies/Adverse Reactions: ciprofloxacin [From Cipro] Allergy (Severe, Verified 05/18/23 11:26) gets cellulitis Sulfa (Sulfonamide Antibiotics) Allergy (Severe, Verified 05/18/23 11:26) tachycardia levofloxacin [From Levaquin] Allergy (Verified 05/18/23 11:27) Home Medications: Amitriptyline HCl 75 mg PO DAILY 04/26/20 [History] Ergocalciferol (Vitamin D2) [Vitamin D] 50,000 unit PO WEEKLY 04/26/20 [History] Metformin HCl [Metformin ER Osmotic] 1,000 mg PO BID 04/26/20 [History] Pramipexole Di-HCl 0.5 mg [Mirapex 0.5 MG Tablet] 0.75 mg PO HS 04/26/20 [History] Atorvastatin Calcium [Lipitor] 10 mg PO DAILY 11/24/20 [History] Ferrous Sulfate, Dried [Iron] 65 mg PO DAILY 11/24/20 [History] Spironolactone 50 mg PO BID 11/24/20 [History] Insulin Regular, Human [Humulin R U-500 Kwikpen] 0 unit SQ UD 05/18/23 [History] Omeprazole 40 mg PO DAILY 05/18/23 [History] dilTIAZem HCL [Diltiazem HCl] 60 mg PO DAILY 05/18/23 [History] Hx Influenza Vaccination/Date Given: Yes Hx Pneumococcal Vaccination/Date Given: No Travel Risk - International Travel Have you traveled outside of the country in past 3 weeks: No - Coronavirus Screening Are you exhibiting any of the following symptoms?: No Close contact with a COVID-19 positive Pt in past 14-21 Days: No - Vaccine Status Have you recieved a Covid-19 vaccination: Yes 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: Moderna - Vaccination Dates Date of 2cond Vaccination (if applicable): august 2020 - Review of Systems Constitutional: No Symptoms Eyes: No Symptoms Ears, Nose, & Throat: No Symptoms Respiratory: No Symptoms Cardiac: No Symptoms Abdominal/Gastrointestinal: No Symptoms, Diarrhea Genitourinary Symptoms: No Symptoms Musculoskeletal: No Symptoms Skin: No Symptoms Neurological: No Symptoms Psychological: No Symptoms Endocrine: No Symptoms Hematologic/Lymphatic: No Symptoms Immunological/Allergic: No Symptoms - Past Medical History Pertinent Past Medical History: Yes Neurological History: Migraines ENT History: No Pertinent History Cardiac History: Hypertension Respiratory History: No Pertinent History Endocrine Medical History: Diabetes Type II Musculoskeletal History: Osteoarthritis GI Medical History: No Pertinent History History: No Pertinent History Psycho-Social History: No Pertinent History Female Reproductive Disorders: No Pertinent History Other Medical History: low IGG2. pulmonary hypertension - Past Surgical History Past Surgical History: Yes Neuro Surgical History: No Pertinent History Cardiac: No Pertinent History Respiratory: No Pertinent History Gastrointestinal: No Pertinent History Genitourinary: No Pertinent History Musculoskeletal: Joint Replacement Female Surgical History: Section, Tubal Ligation Other Surgical History: bilateral hip replacements, back, right foot ganglion cyst - Social History Smoking Status: Never smoker Exposure to second hand smoke: No Drug Use: none Patient Lives Alone: No - Nursing Vital Signs Nursing Vital Signs: Initial Vital Signs Temperature 98.3 F 05/18/23 11:11 Pulse Rate 93 H 05/18/23 11:11 Blood Pressure 149/76 05/18/23 11:11 O2 Sat by Pulse Oximetry 97 05/18/23 11:11 Pain Scale Pain Intensity 0 hypertensive - Physical Exam General Appearance: no apparent distress Eye Exam: PERRL/EOMI, eyes nml inspection Ears, Nose, Throat Exam: normal ENT inspection, TMs normal, pharynx normal, moist mucous membranes Neck Exam: normal inspection, non-tender, supple, full range of motion, No meningismus, No mass, No Brudzinski, No Kernig's Respiratory Exam: normal breath sounds, lungs clear, airway intact Cardiovascular Exam: regular rate/rhythm, normal peripheral pulses, murmur ( 1/6 systolic ejection murmur) Gastrointestinal/Abdomen Exam: soft ( Obese, soft, good bowel sounds all 4 quadrants, nontender to palpation) Back Exam: normal inspection, normal range of motion Extremity Exam: normal inspection, normal range of motion Neurologic Exam: alert, oriented x 3, cooperative, set up technician II-XII nml as tested, normal mood/affect, nml cerebellar function, nml station & gait, sensation nml Skin Exam: normal color, warm, dry Lymphatic Exam: No adenopathy SpO2 Interpretation: normal SpO2: 97 O2 Delivery: Room Air - Course Nursing assessment & vital signs reviewed: Yes Ordered Tests: Active Orders 24 hr Category Date Time Status CBC W DIFF Stat Lab 05/18/23 12:00 Completed Lab/Rad Data: Laboratory Result Diagrams 05/18/23 12:00 05/18/23 12:00 Laboratory Results 05/18/23 05/18/23 05/18/23 Range/Units 12:08 12:00 12:00 WBC 11.1 H (4.0-10.5) x10^3/uL RBC 3.82 L (4.1-5.4) x10^6/uL Hgb 11.4 L (12.0-16.0) g/dL Hct 36.3 (35-47) % MCV 95.0 (78-100) fL MCH 29.8 (26-32) pg MCHC 31.4 L (32-36) g/dL RDW 15.5 H (11.5-14.0) % Plt Count 307 (150-450) x10^3/uL MPV 9.8 (7.5-11.0) fL Gran % 75.5 H (36.0-66.0) % Immature Gran % (Auto) 0.5 H (0.00-0.4) % Nucleat RBC Rel Count 0.0 (0.00-0.1) % Eos # (Auto) 0.51 H (0-0.5) x10^3/uL Immature Gran # (Auto) 0.05 H (0.00-0.03) x10^3u/L Absolute Lymphs (auto) 1.56 (1.0-4.6) x10^3/uL Absolute Monos (auto) 0.54 (0.0-1.3) x10^3/uL Absolute Nucleated RBC 0.00 (0.00-0.01) x10^3u/L Lymphocytes % 14.1 L (24.0-44.0) % Monocytes % 4.9 (0.0-12.0) % Eosinophils % 4.6 (0.00-5.0) % Basophils % 0.4 (0.0-0.4) % Absolute Granulocytes 8.38 H (1.4-6.9) x10^3/uL Basophils # 0.04 (0-0.4) x10^3/uL Sodium Direct 136 L (138-146) mmol/L Potassium 3.9 (3.5-4.9) mmol/L Chloride 101 (98-109) mmol/L Carbon Dioxide 24 (24-29) mmol/L Venous BUN 15 (8-26) mg/dL Creatinine 0.5 L (0.6-1.3) mg/dL Glucose 116 H (70-105) mg/dL Ionized Calcium 1.19 (1.12-1.32) mmol/L C. difficile Screen NEGATIVE (NEGATIVE) C.difficile 027-NAP1-B1 PRESUMPTIVE NEGATIVE (NEGATIVE) Influenza Type A Ag (NEGATIVE) Influenza Type B Ag (NEGATIVE) RSV (PCR) (NEGATIVE) SARS-CoV-2 (PCR) (NEGATIVE) 05/18/23 Range/Units 11:50 WBC (4.0-10.5) x10^3/uL RBC (4.1-5.4) x10^6/uL Hgb (12.0-16.0) g/dL Hct (35-47) % MCV (78-100) fL MCH (26-32) pg MCHC (32-36) g/dL RDW (11.5-14.0) % Plt Count (150-450) x10^3/uL MPV (7.5-11.0) fL Gran % (36.0-66.0) % Immature Gran % (Auto) (0.00-0.4) % Nucleat RBC Rel Count (0.00-0.1) % Eos # (Auto) (0-0.5) x10^3/uL Immature Gran # (Auto) (0.00-0.03) x10^3u/L Absolute Lymphs (auto) (1.0-4.6) x10^3/uL Absolute Monos (auto) (0.0-1.3) x10^3/uL Absolute Nucleated RBC (0.00-0.01) x10^3u/L Lymphocytes % (24.0-44.0) % Monocytes % (0.0-12.0) % Eosinophils % (0.00-5.0) % Basophils % (0.0-0.4) % Absolute Granulocytes (1.4-6.9) x10^3/uL Basophils # (0-0.4) x10^3/uL Sodium Direct (138-146) mmol/L Potassium (3.5-4.9) mmol/L Chloride (98-109) mmol/L Carbon Dioxide (24-29) mmol/L Venous BUN (8-26) mg/dL Creatinine (0.6-1.3) mg/dL Glucose (70-105) mg/dL Ionized Calcium (1.12-1.32) mmol/L C. difficile Screen (NEGATIVE) C.difficile 027-NAP1-B1 (NEGATIVE) Influenza Type A Ag NEGATIVE (NEGATIVE) Influenza Type B Ag NEGATIVE (NEGATIVE) RSV (PCR) NEGATIVE (NEGATIVE) SARS-CoV-2 (PCR) NEGATIVE (NEGATIVE) - Progress Progress Note: 05/18/23 13:29 Nursing note and vital signs reviewed. No food or housing insecurity noted. All lab results reviewed and shared with patient. 05/18/23 13:30 Patient has had diarrhea now for 5 days without evidence of surgical abdomen and C. difficile toxin was negative. Etiology of diarrhea is most likely viral illness but will place the patient on Flagyl 500 mg twice daily for 5 days to see if there is any improvement. Patient also placed on Bentyl 20 mg p.o. every 6 hours as needed for diarrhea and abdominal cramping. Patient had no abdominal pain while she was in ER and was able to eat a meal as her blood sugar was decreasing. Patient advised to follow-up with her PCP and return to ER for worsening diarrhea, increased abdominal pain, or temperature greater 100.5. Serial abdominal exams without any tenderness to palpation. Patient is mildly anemic but compared to previous lab work it appears to be baseline for patient. She was discharged in stable condition. Counseled pt/family regarding: lab results, diagnosis, need for follow-up Medical Desision Making - Independent Historian Additional History obtained from: Spouse - Diagnostic Testing Diagnostic test were ordered, analyzed, and reviewed by me: Yes - Risk of complications The pt has a mod risk of morbidity or mortality based on: Need for prescription drug management - Departure Departure Disposition: Home Clinical Impression: Diarrhea Condition: Stable Critical Care Time: No Referrals: ADELINA VASQUES NP [Primary Care Provider] - Follow up/PCP as directed Instructions: Diarrhea and Traveler's Diarrhea, Adult (DC) Additional Instructions: Follow-up with your family MD. Start Flagyl twice a day for 5 days. Bentyl as needed for diarrhea and abdominal cramping. Return to ER for worsening diarrhea, increasing abdominal pain, or temperature greater 100.5. Prescriptions: Dicyclomine HCl 20 mg [Bentyl 20 mg] 20 mg PO Q6HPRN PRN #15 tablet PRN Reason: Diarrhea Metronidazole 500 mg [Flagyl 500 MG] 500 mg PO BID #10 tablet
[2023-05-18 12:09] LABS: Absolute Neutrophil Ct (ANC) 8.38 x10^3/uL (1.4-6.9); BASOPHIL % 0.4 % (0.0-0.4); Basophil (Absolute #) 0.04 x10^3/uL (0-0.4); Eosinophil % 4.6 % (0.00-5.0); Eosinophil (Absolute #) 0.51 x10^3/uL (0-0.5); Hematocrit 36.3 % (35-47); Hemoglobin 11.4 g/dL (12.0-16.0); IMMATURE GRAN # 0.05 x10^3u/L (0.00-0.03); IMMATURE GRAN % 0.5 % (0.00-0.4); Lymphocyte (Absolute #) 1.56 x10^3/uL (1.0-4.6); Lymphocytes % 14.1 % (24.0-44.0); Mean Corpuscular Hemoglobin 29.8 pg (26-32); Mean Corpuscular Hgb Concent. 31.4 g/dL (32-36); Mean Platelet Volume 9.8 fL (7.5-11.0); Monocyte (Absolute #) 0.54 x10^3/uL (0.0-1.3); Monocytes % 4.9 % (0.0-12.0); Neutrophil % 75.5 % (36.0-66.0); Platelet Count 307 x10^3/uL (150-450); Red Blood Count 3.82 x10^6/uL (4.1-5.4); Red Cell Distribution Width 15.5 % (11.5-14.0); White Blood Count 11.1 x10^3/uL (4.0-10.5)
[2023-05-18 12:32] LABS: ISTAT CREA 0.5 mg/dL (0.6-1.3); ISTAT K 3.9 mmol/L (3.5-4.9); ISTAT iCA 1.19 mmol/L (1.12-1.32)
[2023-05-18 12:38] LABS: INFLUENZA A NEGATIVE (NEGATIVE); INFLUENZA B NEGATIVE (NEGATIVE); RESPIRATORY SYNCTIAL VIRUS NEGATIVE (NEGATIVE); SARS-CoV-2 Xpert Express NEGATIVE (NEGATIVE)
[2023-05-18 12:58] LABS: 027 TOX PROD PRESUMPTIVE NEGATIVE (NEGATIVE); TOXIGENIC C. DIFF ORG NEGATIVE (NEGATIVE)
[2023-05-18 13:22] VITALS: BP 130/66
== END 2023-05-18 13:31 | disposition home or self-care (01) ==
LOC: ED 11:05
DX: R19.7 Diarrhea, unspecified (principal); R11.0 Nausea; E11.9 Type 2 diabetes mellitus without complications; I10 Essential (primary) hypertension; Z79.84 Long term (current) use of oral hypoglycemic drugs; Z79.4 Long term (current) use of insulin; Z79.899 Other long term (current) drug therapy
CPT/HCPCS: 0241U; 36415; 80047; 85025; 87493; 99282

== ENCOUNTER 2024-04-09 12:15 | Emergency (ER) | payer BC ==
[2024-04-09 12:34] VITALS: TEMP 97.1
[2024-04-09] MEDS ORDERED: Sodium Chloride 0.9% 1000 ML 1,000 ML ONE (12:51)
[2024-04-09] MEDS ORDERED: Zofran 4 MG/2 ML VIAL ONE (12:51)
[2024-04-09] MEDS ORDERED: PROTONIX 40 MG IV IV ONE (12:51)
--- NOTE | 2024-04-09 12:51 | ERPHSYRPT ---
- History of Present Illness Time Seen by Provider: 04/09/24 12:48 Historian: patient Exam Limitations: no limitations Patient Subjective Stated Complaint: pt here for nausea and loose stools for 3 days now, no fever, Triage Nursing Assessment: pt alert, walked in, resp easy, skin w/d/p. abd soft, moves all ext well Physician History: Patient is 53-year-old female with significant past medical history of type 2 diabetes mellitus started having a abdominal pain nausea bloating sensation in upper abdomen as well as periumbilical area for last 3 days. Patient has been taking Mounjaro for last 2 months. Patient dose has been increased from 2.5 to 5 mg in last 2 months. She states that she does not have any other trouble with Mounjaro otherwise. Patient denies any diarrhea but complaining of nausea bloating sensation off-and-on epigastric and periumbilical area abdominal pain. Timing/Duration: day(s) (three days) Activities at Onset: none Quality: cramping, fullness Abdominal Pain Onset Location: epigastric, periumbilical Pain Radiation: no radiation Severity of Pain-Max: mild Severity of Pain-Current: mild Associated Symptoms: denies symptoms Previous symptoms: no prior history Body Map: 1 - area of pain Allergies/Adverse Reactions: ciprofloxacin [From Cipro] Allergy (Severe, Verified 04/09/24 12:32) gets cellulitis Sulfa (Sulfonamide Antibiotics) Allergy (Severe, Verified 04/09/24 12:32) tachycardia adhesive tape Allergy (Verified 04/09/24 12:32) levofloxacin [From Levaquin] Allergy (Verified 04/09/24 12:32) Home Medications: Amitriptyline HCl 75 mg PO DAILY 04/26/20 [History] Ergocalciferol (Vitamin D2) [Vitamin D] 50,000 unit PO WEEKLY 04/26/20 [History] Metformin HCl [Metformin ER Osmotic] 1,000 mg PO BID 04/26/20 [History] Pramipexole Di-HCl 0.5 mg [Mirapex 0.5 MG Tablet] 0.75 mg PO HS 04/26/20 [History] Atorvastatin Calcium [Lipitor] 10 mg PO DAILY 11/24/20 [History] Ferrous Sulfate, Dried [Iron] 65 mg PO DAILY 11/24/20 [History] Spironolactone 50 mg PO BID 11/24/20 [History] Insulin Regular, Human [Humulin R U-500 Kwikpen] 0 unit SQ UD 05/18/23 [History] Omeprazole 40 mg PO DAILY 05/18/23 [History] dilTIAZem HCL [Diltiazem HCl] 60 mg PO DAILY 05/18/23 [History] Hx Tetanus, Diphtheria Vaccination/Date Given: No Hx Influenza Vaccination/Date Given: Yes Hx Pneumococcal Vaccination/Date Given: No Immunizations Up to Date: Yes Travel Risk - International Travel Have you traveled outside of the country in past 3 weeks: No - Emerging Infectious Disease Are you exhibiting symptoms associated with any current EIDs: No - Review of Systems Constitutional: No Fever, No Chills Eyes: No Symptoms Ears, Nose, & Throat: No Symptoms Respiratory: No Cough, No Dyspnea Cardiac: No Chest Pain, No Edema, No Syncope Abdominal/Gastrointestinal: Abdominal Pain, Nausea, Appetite Changes, No Vomiting, No Diarrhea Genitourinary Symptoms: No Dysuria Musculoskeletal: No Back Pain, No Neck Pain Skin: No Rash Neurological: No Dizziness, No Focal Weakness, No Sensory Changes Psychological: No Symptoms Endocrine: No Symptoms All Other Systems: Reviewed and Negative - Past Medical History Pertinent Past Medical History: Yes Neurological History: Migraines ENT History: No Pertinent History Cardiac History: Hypertension Respiratory History: No Pertinent History Endocrine Medical History: Diabetes Type II Musculoskeletal History: Osteoarthritis GI Medical History: No Pertinent History History: No Pertinent History Psycho-Social History: No Pertinent History Female Reproductive Disorders: No Pertinent History Other Medical History: low IGG2. pulmonary hypertension - Past Surgical History Past Surgical History: Yes Neuro Surgical History: No Pertinent History Cardiac: No Pertinent History Respiratory: No Pertinent History Gastrointestinal: No Pertinent History Genitourinary: No Pertinent History Musculoskeletal: Joint Replacement Female Surgical History: Section, Tubal Ligation Other Surgical History: bilateral hip replacements, back, right foot ganglion cyst - Female History Hx Last Menstrual Period: nov Hx Now: No - Social History Smoking Status: Never smoker Exposure to second hand smoke: No Drug Use: none Patient Lives Alone: No - Social Determinants of Health Will the patient participate in the screening: Yes Do you worry about a steady place to live?: No Do you have any problems with any of the following?: No known problems In the past 12 months,have you had to go without utilities?: No Transportation Issues: No Has anyone in your support network made you feel unsafe?: No Have you or anyone in your house had to go without enough: No - Nursing Vital Signs Nursing Vital Signs: Initial Vital Signs Temperature 97.1 F 04/09/24 12:33 Pulse Rate 113 H 04/09/24 12:33 Respiratory Rate 18 04/09/24 12:33 Blood Pressure 170/81 04/09/24 12:33 O2 Sat by Pulse Oximetry 99 04/09/24 12:33 Pain Scale Pain Intensity 6 - Physical Exam General Appearance: no apparent distress, alert Eye Exam: PERRL/EOMI, eyes nml inspection Ears, Nose, Throat Exam: normal ENT inspection, pharynx normal, moist mucous membranes Neck Exam: normal inspection, non-tender, supple, full range of motion Respiratory Exam: normal breath sounds, lungs clear, No respiratory distress Cardiovascular Exam: regular rate/rhythm, normal heart sounds Gastrointestinal/Abdomen Exam: soft, No tenderness, No mass Back Exam: normal inspection, normal range of motion, No CVA tenderness, No vertebral tenderness Extremity Exam: normal inspection, normal range of motion, pelvis stable Neurologic Exam: alert, oriented x 3, cooperative, normal mood/affect, nml cerebellar function, sensation nml, No motor deficits Skin Exam: normal color, warm, dry SpO2: 99 - Course Nursing assessment & vital signs reviewed: Yes Ordered Tests: Active Orders 24 hr Category Date Time Status ABDOMEN AND PELVIS W CONTRAST [CT] Stat Exams 04/09/24 13:56 Completed AMYLASE Stat Lab 04/09/24 12:48 Completed CBC W DIFF Stat Lab 04/09/24 12:48 Completed CMP Stat Lab 04/09/24 12:48 Completed LIPASE Stat Lab 04/09/24 12:48 Completed Medication Summary Discontinued Medications Generic Name Dose Route Start Last Admin Trade Name Freq PRN Reason Stop Dose Admin Sodium Chloride 1,000 mls @ 999 mls/hr 04/09/24 12:39 04/09/24 12:59 Sodium Chloride 0.9% 1000 Ml IV 04/09/24 13:39 999 mls/hr .Q1H1M STA Administration Sodium Chloride Confirm 04/09/24 12:51 Sodium Chloride 0.9% 1000 Ml Administered 04/09/24 12:52 Dose 1,000 mls @ ud .ROUTE .STK-MED ONE Ceftriaxone Sodium 1 gm in 100 mls @ 200 mls/hr 04/09/24 15:00 04/09/24 15:20 Rocephin 1 Gm / 100 Ml Nacl IV 04/09/24 15:29 200 mls/hr STAT ONE 200 mls/hr Administration Ceftriaxone Sodium Confirm 04/09/24 15:19 Rocephin 1 Gm / 100 Ml Nacl Administered 04/09/24 15:20 Dose 1 gm in 100 mls @ ud IV .STK-MED ONE Ondansetron HCl 4 mg 04/09/24 12:39 04/09/24 12:59 Ondansetron Hcl 4 Mg/2 Ml Vial IV 04/09/24 12:40 4 mg STAT ONE Administration Ondansetron HCl Confirm 04/09/24 12:51 Ondansetron Hcl 4 Mg/2 Ml Vial Administered 04/09/24 12:52 Dose 4 mg .ROUTE .STK-MED ONE Pantoprazole Sodium 40 mg 04/09/24 12:39 04/09/24 12:59 Pantoprazole 40 Mg Vial IV 04/09/24 12:40 40 mg STAT ONE Administration Pantoprazole Sodium Confirm 04/09/24 12:51 Pantoprazole 40 Mg Vial Administered 04/09/24 12:52 Dose 40 mg IV .STK-MED ONE Lab/Rad Data: Laboratory Result Diagrams 04/09/24 12:48 04/09/24 12:48 Laboratory Results 04/09/24 04/09/24 Range/Units 12:48 12:48 WBC 15.5 H (3.98-10.04) x10^3/uL RBC 4.69 (3.93-5.22) x10^6/uL Hgb 14.0 (11.2-15.7) g/dL Hct 43.6 (34.1-44.9) % MCV 93.0 (79.4-94.8) fL MCH 29.9 (25.6-32.2) pg MCHC 32.1 L (32.2-35.5) g/dL RDW 15.2 H (11.7-14.4) % Plt Count 361 (182-369) x10^3/uL MPV 10.1 (9.4-12.3) fL Gran % 90.9 H (34.0-71.1) % Immature Gran % (Auto) 0.8 H (0.001-0.429) % Nucleat RBC Rel Count 0.0 (0.00-0.2) % Eos # (Auto) 0.12 (0.04-0.36) x10^3/uL Immature Gran # (Auto) 0.12 H (0.001-0.031) x10^3u/L Absolute Lymphs (auto) 0.55 L (1.18-3.74) x10^3/uL Absolute Monos (auto) 0.58 (0.24-0.86) x10^3/uL Absolute Nucleated RBC 0.00 (0.00-0.012) x10^3u/L Lymphocytes % 3.6 L (19.3-51.7) % Monocytes % 3.7 L (4.7-12.5) % Eosinophils % 0.8 (0.7-5.8) % Basophils % 0.2 (0.1-1.2) % Absolute Granulocytes 14.07 H (1.56-6.13) x10^3/uL Basophils # 0.03 (0.01-0.08) x10^3/uL Sodium 135 (135-145) mmol/L Potassium 4.1 (3.5-5.1) mmol/L Chloride 97 L (98-107) mmol/L Carbon Dioxide 27 (22-30) mmol/L Anion Gap 14.9 (5-15) MEQ/L BUN 17 (7-17) mg/dL Creatinine 0.72 (0.52-1.04) mg/dL Estimated GFR 99.9 ML/MIN Glucose 213 H (74-106) mg/dL Calcium 9.3 (8.4-10.2) mg/dL Total Bilirubin 0.90 (0.2-1.3) mg/dL AST 27 (14-36) U/L ALT 29 (0-35) U/L Alkaline Phosphatase 104 (38-126) U/L Serum Total Protein 8.0 (6.3-8.2) g/dL Albumin 4.6 (3.5-5.0) g/dL Amylase 33 (30-110) U/L Lipase 39 (23-300) U/L CLINICAL HISTORY: abdominal pain COMPARISON: Prior 09/08/2022. TECHNIQUE: CT of the abdomen and pelvis was performed with contrast, with the following protocol: axial images with, and reconstructed coronal and sagittal images. One of the following dose reduction techniques was utilized for this exam: Automated exposure control, adjustment of the mA and/or kV according to patient size, and use of iterative reconstruction. FINDINGS: Abdomen: Liver: Mildly enlarged in size (20 cm) with mildly decreased attenuation suggesting fatty infiltration Tiny hypo-dense lesion (too small to be characterized) No other focal lesions, cysts, or masses were identified. Hepatic vasculature and biliary ducts are unremarkable. Gallbladder and Biliary System: The gallbladder is normal in size and shape. No wall thickening, pericholecystic fluid, or gallstones were identified. The common bile duct is normal in caliber without dilation. Pancreas: PatientID: [id number] Patient Name: DELANO ANN Exam Date: 04/09/2024 Procedure: ABDOMEN AND PELVIS W CONTRAST page 1 of 2 Pancreatic head, body, and tail are visualized and appear normal in size and density. No pancreatic masses or calcifications were noted. The pancreatic duct is not dilated. Spleen: Normal in size, shape, and density. No splenic lesions or masses were identified. Kidneys and Adrenal Glands: Both kidneys are normal in size, shape, and position. small left renal cortical cyst about 20 mm noted The right kidney is malpositioned Cortical thickness is within normal limits. No renal calculi or hydronephrosis. Adrenal glands are unremarkable with no evidence of masses or hyperplasia. Pelvis : Limited evaluation of the pelvic viscera due to bilateral hip replacements giving streak artifacts. Distal ureters and urinary bladder cannot be optimally evaluated due to associated pelvic hardware artifact Uterus and bilateral adnexa appear unremarkable. Bowel: Mildly fluid-filled prominent small bowel loops throughout the abdomen, no evidence of obstruction No evidence of bowel obstruction or wall thickening. Few small colonic diverticula were seen. Small umbilical hernia containing fat, defect about 2 cm Bones and Soft Tissues: Pelvic bones and soft tissues are unremarkable. Degenerative changes in the spine No fractures or abnormal masses were identified. Smudging of anterior abdominal wall fat planes IMPRESSION: 1. Mild hepatomegaly with diffuse hypo density suggesting fatty infiltration (stable findings) 2. Uncomplicated colonic diverticulosis. (stable) 3. Small simple left renal cortical cyst (interval new) 4. Small fat-containing umbilical hernia (stable finding) Medical Desision Making - Diagnostic Testing Diagnostic test were ordered, analyzed, and reviewed by me: Yes Radiological Interpretation: Interpreted by me, Reviewed by me, Teleradiologist Report - Risk of complications Minimal Risk: Minimal risk of morbidity - Departure Departure Disposition: Home Clinical Impression: Abdominal pain Qualifiers: Abdominal location: generalized Qualified Code(s): R10.84 - Generalized abdominal pain Condition: Stable Critical Care Time: No Referrals: ADELINA VASQUES, SHIPPING INSPECTOR [Primary Care Provider] - Follow up/PCP as directed Instructions: Abdominal pain Additional Instructions: Discharge/Care Plan DELANO ANN was seen on 04/09/24 in the Emergency Room. The patient was counseled regarding Diagnosis,Lab results, Imaging studies, need for follow up and when to return to the Emergency Room. Prescriptions given: Discharge Note I have spoken with the patient and/or caregivers. I have explained the patient's condition, diagnosis and treatment plan based on the information available to me at this time. I have answered the patient's and/or caregiver's questions and a ddressed any concerns. The patient and/or caregivers have as good understanding of the patient's diagnosis, condition and treatment plan as can be expected at this point. The vital signs have been stable. The patient's condition is stable and appropriate for discharge from the emergency department. The patient will pursue further outpatient evaluation with the primary care physician or other designated or consulting physician as outlined in the discharge instructions. The patient and/or caregivers are agreeable to this plan of care and follow-up instructions have been explained in detail. The patient and/or caregivers have received these instruction. The patient/and or caregivers are aware that any significant change in condition or worsening of symptoms should prompt an immediate return to this or the closest emergency department or call 911. DELANO ANN was seen on 04/09/24 n the Emergency Room. At that time you were treated for an emergent condition, during your visit Laboratory, Radiology and/or other procedures may have been ordered. It is very important that you follow-up with your Primary Care Physician ADELINA VASQUES within the next 24-48 hours to review your Emergency Room visit and the final results of testing that was ordered. Some test results such as Urine Cultures, Blood Cultures, and other cultures if ordered will not be finalized for 24-48 hours. If you do not have a Primary Care Provider please call the medical records department at [phone] ext [phone] to obtain a copy of your results or you may sign into our patient portal to obtain these results by visiting us @ [email or web address] and completing the following steps: 1. Click on the Patient Portal link 2. Click the Patient Self Enrollment Link to complete the enrollment form and entering your 3. Once the enrollment form is completed you will receive an email with a te [employer] ID and password at the email address you provided. 4. Next choose a user name and password. Your user name must be at least 4 characters long and your password must be at least 4 characters long. 5. Choose a security question from the list and provide your answer to the question. If you already have signed into the Health Portal you may access your Health Care Information 06/11 by the following steps: 1. Login to our website @ [email or web address] 2. Enter your original user name and password. FAQS [facility] Portal is an online tool that contains your Lab Results, Radiology Reports, Visit History, Discharge Instructions and Health Summary Lab and Radiology Results will not be available for 72 hours on the portal. The Portal is a secure site, passwords are encryted and URLs are re-written so they cannot be copied and pasted. You and authorized family members are the only ones who can access your Portal. Also there is a timeout feature that protects your information if you leave the Portal page open. If you have technical difficulty please use the Contact Us link on the page this will allow you to submit any questions you have regarding the Portal or you may contact the Medical Record Department at [phone] ext [phone].
[2024-04-09 12:57] LABS: Absolute Neutrophil Ct (ANC) 14.07 x10^3/uL (1.56-6.13); BASOPHIL % 0.2 % (0.1-1.2); Basophil (Absolute #) 0.03 x10^3/uL (0.01-0.08); Eosinophil % 0.8 % (0.7-5.8); Eosinophil (Absolute #) 0.12 x10^3/uL (0.04-0.36); Hematocrit 43.6 % (34.1-44.9); IMMATURE GRAN # 0.12 x10^3u/L (0.001-0.031); IMMATURE GRAN % 0.8 % (0.001-0.429); Lymphocyte (Absolute #) 0.55 x10^3/uL (1.18-3.74); Lymphocytes % 3.6 % (19.3-51.7); Mean Corpuscular Hemoglobin 29.9 pg (25.6-32.2); Mean Corpuscular Hgb Concent. 32.1 g/dL (32.2-35.5); Mean Platelet Volume 10.1 fL (9.4-12.3); Monocyte (Absolute #) 0.58 x10^3/uL (0.24-0.86); Monocytes % 3.7 % (4.7-12.5); Neutrophil % 90.9 % (34.0-71.1); Platelet Count 361 x10^3/uL (182-369); Red Blood Count 4.69 x10^6/uL (3.93-5.22); Red Cell Distribution Width 15.2 % (11.7-14.4); White Blood Count 15.5 x10^3/uL (3.98-10.04)
[2024-04-09] MEDS: PROTONIX 40 MG IV IV ONE (12:59)
[2024-04-09] MEDS: Zofran 4 MG/2 ML VIAL IV ONE (12:59)
[2024-04-09] MEDS: Sodium Chloride 0.9% 1000 ML 1,000 ML IV STA (12:59)
[2024-04-09 13:48] LABS: ALBUMIN 4.6 g/dL (3.5-5.0); ANION GAP 14.9 MEQ/L (5-15); BILIRUBIN,TOTAL 0.9 mg/dL (0.2-1.3); Calcium 9.3 mg/dL (8.4-10.2); Creatinine 1 0.72 mg/dL (0.52-1.04); EST GLOMERULAR FILTRATION RATE 99.9 ML/MIN; Potassium 4.1 mmol/L (3.5-5.1)
[2024-04-09] MEDS ORDERED: ROCEPHIN 1 GM / 100 ML NaCl 1 GM/100 ML IVPB IV ONE (15:19)
[2024-04-09] MEDS: ROCEPHIN 1 GM / 100 ML NaCl 1 GM/100 ML IVPB IV ONE (15:20)
--- NOTE | 2024-04-09 15:25 | XRAY ---
CLINICAL HISTORY: abdominal pain COMPARISON: Prior 09/08/2022. TECHNIQUE: CT of the abdomen and pelvis was performed with contrast, with the following protocol: axial images with, and reconstructed coronal and sagittal images. One of the following dose reduction techniques was utilized for this exam: Automated exposure control, adjustment of the mA and/or kV according to patient size, and use of iterative reconstruction. FINDINGS: Abdomen: Liver: Mildly enlarged in size (20 cm) with mildly decreased attenuation suggesting fatty infiltration Tiny hypo-dense lesion (too small to be characterized) No other focal lesions, cysts, or masses were identified. Hepatic vasculature and biliary ducts are unremarkable. Gallbladder and Biliary System: The gallbladder is normal in size and shape. No wall thickening, pericholecystic fluid, or gallstones were identified. The common bile duct is normal in caliber without dilation. Pancreas: Pancreatic head, body, and tail are visualized and appear normal in size and density. No pancreatic masses or calcifications were noted. The pancreatic duct is not dilated. Spleen: Normal in size, shape, and density. No splenic lesions or masses were identified. Kidneys and Adrenal Glands: Both kidneys are normal in size, shape, and position. small left renal cortical cyst about 20 mm noted The right kidney is malpositioned Cortical thickness is within normal limits. No renal calculi or hydronephrosis. Adrenal glands are unremarkable with no evidence of masses or hyperplasia. Pelvis : Limited evaluation of the pelvic viscera due to bilateral hip replacements giving streak artifacts. Distal ureters and urinary bladder cannot be optimally evaluated due to associated pelvic hardware artifact Uterus and bilateral adnexa appear unremarkable. Bowel: Mildly fluid-filled prominent small bowel loops throughout the abdomen, no evidence of obstruction No evidence of bowel obstruction or wall thickening. Few small colonic diverticula were seen. Small umbilical hernia containing fat, defect about 2 cm Bones and Soft Tissues: Pelvic bones and soft tissues are unremarkable. Degenerative changes in the spine No fractures or abnormal masses were identified. Smudging of anterior abdominal wall fat planes IMPRESSION: 1. Mild hepatomegaly with diffuse hypo density suggesting fatty infiltration (stable findings) 2. Uncomplicated colonic diverticulosis. (stable) 3. Small simple left renal cortical cyst (interval new) 4. Small fat-containing umbilical hernia (stable finding) Electronically Signed by: Iban Hogue MD. (04/09/2024 15:21:38 EST)
[2024-04-09 15:28] VITALS: O2SAT 99
[2024-04-09 15:30] VITALS: BP 155/75; PULSE 112; RESP 18
[2024-04-09 16:53] LABS: Slide Review 1 YES
== END 2024-04-09 15:53 | disposition home or self-care (01) ==
LOC: ED 12:15
DX: R10.84 Generalized abdominal pain (principal); R11.0 Nausea
CPT/HCPCS: 36415; 74177; 80053; 82150; 83690; 85025; 96360; 96365; 96374; 96375; 99284; J0696; J2405